=== PATIENT | female | born 1995 | race Caucasian/White ===

== ENCOUNTER 2017-01-23 13:55 | Emergency (ER) | payer BC ==
--- NOTE | ~2017-01-23 | ER ---
PATIENT'S NAME: EVELYN FERRER [facility] AGE: 21 Y [address] ROOM: [place] [address] LOCATION: [facility] ADMIT DATE: 01/23/2017 ER/Outpatient Report DISCHARGE DATE: 01/23/2017 FAMILY PHYSICIAN: Physician, Unknown ATTENDING PHYSICIAN: Cipriano Sarabia Time of Arrival: 1355 hours. Time of Evaluation: 1413 hours. CHIEF COMPLAINT: Allergic reaction. HISTORY OF PRESENT ILLNESS: The patient is a 21-year-old female who presents to the emergency department today with a chief complaint of allergic reaction. She reports this started one day prior to arrival. She was taking some Benadryl with some relief, however, it just continued to get worse. She reports that the rash all over body has gotten worse. She is having some scratchiness in her throat and some shortness of breath. She denies any fevers or chills. Does have itching, hives, and rash all over. Currently 0/10 pain. PAST MEDICAL HISTORY: Cardiac arrest at 12, SVT defibrillation, and anxiety. PAST SURGICAL HISTORY: Heart. SOCIAL HISTORY: The patient denies any tobacco use. Reports occasional alcohol use. Denies any illicit drug use. ALLERGIES: NO KNOWN DRUG ALLERGIES. MEDICATIONS: Please see list. PRIMARY CARE DOCTOR: Dr. Kohli in [place]. REVIEW OF SYSTEMS: All systems are reviewed by myself and negative with the exception of those discussed in the HPI and past medical history. PHYSICAL EXAMINATION: PATIENT'S NAME: EVELYN FERRER [facility] AGE: 21 Y [address] ROOM: [place] [address] LOCATION: [facility] ADMIT DATE: 01/23/2017 ER/Outpatient Report DISCHARGE DATE: 01/23/2017 FAMILY PHYSICIAN: Physician, Unknown ATTENDING PHYSICIAN: Cipriano Sarabia VITAL SIGNS: Weight 128 kg, blood pressure 137/59, pulse 130, respiratory rate 16, temperature 98.7, and oxygen saturation 96% on room air. GENERAL: The patient is a 21-year-old female, appears stated age, obese, in mild acute distress. HEENT: Head is normocephalic and atraumatic. Pupils are equal, round, and reactive to light. Oropharynx is clear. NECK: Supple. There is no nuchal rigidity. CARDIOVASCULAR: Tachycardic. No murmurs or rubs. LUNGS: Clear to auscultation bilaterally. ABDOMEN: Soft, nontender, and nondistended. No rebound, rigidity, or guarding. MUSCULOSKELETAL: The patient moves all 4 extremities. SKIN: Warm and dry. There is no rashes or lesions noted. LABORATORY DATA AND X-RAYS: None. IMPRESSION: 1. Allergic reaction. 2. Initial visit. EMERGENCY DEPARTMENT COURSE: The patient was brought back to the examination room. Seen and evaluated by myself. IV was established. The patient was given 125 mg of Solu-Medrol IV, 40 mg of Pepcid IV as well as 50 mg of Benadryl IV. The patient was observed here in the emergency department, this has resulted in complete resolution of the patient's symptoms. Her heart rate has come down to 93, in sinus rhythm on the monitor. I have discussed results with the patient. I have written a prescription for prednisone 5 day burst 40 mg daily. I have discussed following up with the primary care doctor in 2 to 3 days for reevaluation. I have discussed following up with the administrative director and door assembler for testing if she so chooses. She denies any exposure to no new soaps and no detergents. DISPOSITION: The patient was discharged to home in good condition. DO KYARA HEARD/modl /[id number] d: 01/23/177 t: 01/24/17 1619, OUTPATIENT REPORT
== END 2017-01-23 15:58 | disposition disaster alternative care site (69) ==
LOC: GMED 13:55
DX: T78.40XA Allergy, unspecified, initial encounter (principal); F41.9 Anxiety disorder, unspecified; I47.1 Supraventricular tachycardia; Z98.890 Other specified postprocedural states; Z86.79 Personal history of other diseases of the circulatory system; Z79.899 Other long term (current) drug therapy; X58.XXXA Exposure to other specified factors, initial encounter
CPT/HCPCS: J1200; J2930; J7030